=== PATIENT | male | born 1975 ===

== ENCOUNTER 2022-06-25 17:50 | Emergency (ER) | payer BC ==
[2022-06-25] MEDS ORDERED: Bacitracin Oint 1 GM U/D Packet TOP ONE (17:53)
[2022-06-25] MEDS ORDERED: Diphtheria,Pertussis(Acell),Tetanus Vaccine 0.5 ML Syringe IM ONE (17:53)
[2022-06-25] MEDS ORDERED: Lidocaine 1% 5 ML VIAL INJECT ONE (17:53)
== END 2022-06-25 18:20 | disposition home or self-care (01) ==
LOC: DL.ED 17:50
DX: S61.042A Puncture wound with foreign body of left thumb without damage to nail, initial encounter (principal); Z23 Encounter for immunization; W45.8XXA Other foreign body or object entering through skin, initial encounter
CPT/HCPCS: 10120; 90471; 90715; 99282; 99283-25